=== PATIENT | female | born 1980 | race Hispanic/Latino ===

== ENCOUNTER 2017-06-05 12:58 | Outpatient (CLI) | payer BC ==
--- NOTE | 2017-06-06 16:28 | Mammography Report ---
BILATERAL DIGITAL SCREENING MAMMOGRAM with CAD: 06/05/17 12:58:00 CLINICAL: Routine screening. COMPARISON:11/16/15 FINDINGS: The breasts are heterogeneously dense, which may obscure small masses. No mass, architectural distortion or suspicious calcifications. IMPRESSION: No mammographic evidence of malignancy. BI-RADS CATEGORY: 1 - - Negative RECOMMENDATION: Routine mammographic screening in one year. COMMENT: Patient follow-up letters are generated by our [employer] application.
== END 2017-06-05 12:59 | disposition home or self-care (01) ==
LOC: SPVWC 12:58
PROVIDERS: ATTEND Obstetrics & Gynecology
DX: Z12.31 Encounter for screening mammogram for malignant neoplasm of breast (principal)
CPT/HCPCS: 77067

== ENCOUNTER 2018-06-11 11:31 | Outpatient (CLI) | payer OTHER ==
--- NOTE | 2018-06-12 10:10 | Mammography Report ---
BILATERAL DIGITAL SCREENING MAMMOGRAM with CAD: 06/11/18 11:31:00 CLINICAL: Routine screening. COMPARISON:06/05/17 FINDINGS: The breasts are heterogeneously dense, which may obscure small masses. No mass, architectural distortion or suspicious calcifications. IMPRESSION: No mammographic evidence of malignancy. BI-RADS CATEGORY: 1 - - Negative RECOMMENDATION: Routine mammographic screening in one year. COMMENT: Patient follow-up letters are generated by our [employer] application.
== END 2018-06-11 11:32 | disposition home or self-care (01) ==
LOC: SPVWC 11:31
PROVIDERS: ATTEND Obstetrics & Gynecology
DX: Z12.31 Encounter for screening mammogram for malignant neoplasm of breast (principal)
CPT/HCPCS: 77067

== ENCOUNTER 2019-07-08 11:30 | Outpatient (CLI) | payer SELFPAY ==
--- NOTE | 2019-07-08 16:10 | Mammography Report ---
DIGITAL SCREENING MAMMOGRAM WITH CAD, 07/08/2019 INDICATION: Routine screening mammography. TECHNIQUE: Digital bilateral 2D mammography was obtained in the craniocaudal and mediolateral obliq ue projections. This examination was interpreted with the benefit of Computer-Aided Detection analysi s. COMPARISON: 06/11/2018 FINDINGS: Breast Density: The breasts are heterogeneously dense, which may obscure small masses. There is no evidence of dominant mass, suspicious calcifications or architectural distortion in eithe r breast. IMPRESSION: No mammographic evidence of malignancy. Follow up recommendation: Routine yearly BI-RADS Category 1: Negative. A "normal" or negative report should not discourage follow up or biopsy of a clinically significant f inding. A written summary of these findings will be mailed to the patient. The patient will be entered into a mammography reporting system which will generate a reminder letter for the patient's next appointmen t at the appropriate interval. The [employer] recommends yearly mammograms starting at age 40 and continuing as l katina as a woman is in good health. Breast MRI is recommended for women with an approximate 20-25% or greater lifetime risk of breast cancer, including women with a strong family history of breast or ova [place] cancer or who have been treated for Hodgkin's disease. Signer Name: Patel Street MD Signed: 07/08/2019 4:06 PM Workstation Name: [id number]
== END 2019-07-08 11:31 | disposition home or self-care (01) ==
LOC: SPVWC 11:30
PROVIDERS: ATTEND Internal Medicine
DX: Z12.31 Encounter for screening mammogram for malignant neoplasm of breast (principal)
CPT/HCPCS: 77067

== ENCOUNTER 2020-07-08 13:07 | Outpatient (CLI) | payer OTHER ==
--- NOTE | 2020-07-08 14:42 | Mammography Report ---
DIGITAL SCREENING MAMMOGRAM, 07/08/2020 CLINICAL INFORMATION / INDICATION: Routine screening mammography. SCREENING MAMMO TECHNIQUE: Digital bilateral 2D mammography was obtained in the craniocaudal and mediolateral obliqu e projections. COMPARISON: Prior mammograms 07/08/2019 and 06/11/2018 FINDINGS: Breast Density: The breasts are heterogeneously dense, which may obscure small masses. No dominant mass, suspicious calcifications, or architectural distortion in the right breast. There is a 1.2 cm focal asymmetric density seen in the 9:00 position of the left breast, middle depth , which requires further evaluation. IMPRESSION: 1. A focal asymmetric density in the left breast requires further evaluation with spot compression vi ews and targeted ultrasound if needed. Follow up recommendation: Special View: Spot BI-RADS Category 0: Incomplete. Needs additional imaging evaluation and/or prior mammograms for lasha chacon. A "normal" or negative report should not discourage follow up or biopsy of a clinically significant f inding. A written summary of these findings will be mailed to the patient. The patient will be entered into a mammography reporting system which will generate a reminder letter for the patient's next appointmen t at the appropriate interval. The [employer] recommends yearly mammograms starting at age 40 and continuing as l katina as a woman is in good health. Breast MRI is recommended for women with an approximate 20-25% or greater lifetime risk of breast cancer, including women with a strong family history of breast or ova [place] cancer or who have been treated for Hodgkin's disease. Signer Name: Magnolia Mtz MD Signed: 07/08/2020 2:37 PM Workstation Name: [id number]
== END 2020-07-08 13:08 | disposition home or self-care (01) ==
LOC: SPVWC 13:07
PROVIDERS: ATTEND Internal Medicine
DX: Z12.31 Encounter for screening mammogram for malignant neoplasm of breast (principal); N64.89 Other specified disorders of breast
CPT/HCPCS: 77067